=== PATIENT | male | born 1995 | race Caucasian/White ===

== ENCOUNTER 2016-04-22 | Emergency (ER) | payer OTHER ==
--- NOTE | 2016-04-22 16:19 | ED ---
General Adult HPI - General Chief complaint: Extremity Injury, Upper Stated complaint: R arm pain Time Seen by Provider: 04/22/16 16:00 Source: patient, RN notes reviewed Mode of arrival: ambulatory Limitations: no limitations - History of Present Illness Initial comments: This is a 21-year-old male presents with right forearm pain after donating plasma on 04/18/2016. Patient states he felt a sharp pain when they adjusted the needle and since has felt some loss of sensation to the lateral aspect of the right forearm. Patient states he is still able to feel pressure. Patient states there is pain with flexion and extension of the right upper extremity. Patient denies any numbness/tingling or weakness to the right hand. 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 Patient denies any recent fever, chills, shortness breath, chest pain, abdominal pain, nausea/vomiting/diarrhea, back pain, hematuria, headache, or visual changes, or any other complaints. - Related Data Allergies Allergy/AdvReac Type Severity Reaction Status Date / Time No Known Allergies Allergy Verified 04/22/16 16:04 Review of Systems ROS Statement: Those systems with pertinent positive or pertinent negative responses have been documented in the HPI. ROS Other: All systems not noted in ROS Statement are negative. Past Medical History Past Medical History: No Reported History History of Any Multi-Drug Resistant Organisms: None Reported Past Surgical History: Ear Surgery Past Psychological History: No Psychological Hx Reported Smoking Status: Current every day smoker Past Alcohol Use History: None Reported Past Drug Use History: None Reported General Exam - General Exam Comments Initial Comments: General: The patient is awake and alert, in no distress, and does not appear acutely ill. Neck: The neck is supple, there is no tenderness or JVD. Cardiovascular: There is a regular rate and rhythm. No murmur, rub or gallop is appreciated. Respiratory: Lungs are clear to auscultation, respirations are non-labored, breath sounds are equal. No wheezes, stridor, rales, or rhonchi. Musculoskeletal: There is tenderness to palpation in the antecubital fossa but no swelling, erythema or ecchymosis. No tenderness over the biceps tendon insertion. Full range of motion, strength 5/5 and patient is still able to sense light touch to the lateral aspect of the right forearm with eyes closed but states it feels different than the medial aspect of his forearm. Patient states he has full sensation to the right wrist, right hand to medial aspect of the right forearm. Radial Pulses 2+ bilaterally. Capillary refill normal at less than 2 seconds. Neurological: A&O x 3. CN II-XII intact, There are no obvious motor or sensory deficits. Coordination appears grossly intact. Speech is normal. Skin: Skin is warm and dry and no rashes or lesions are noted. Psychiatric: Normal mood and affect. Limitations: no limitations Course Vital Signs 04/22/16 16:01 Temperature 97.7 F Pulse Rate 75 Respiratory 18 Rate Blood Pressure 118/71 O2 Sat by Pulse 100 Oximetry Medical Decision Making - Medical Decision Making This is a 21-year-old male presents with right forearm pain after donating plasma. On physical exam there is tenderness to palpation in the antecubital fossa but no swelling, erythema or ecchymosis. No tenderness over the biceps tendon insertion. Full range of motion, strength 5/5 and patient is still able to sense light touch to the lateral aspect of the right forearm with eyes closed , but states it feels different than the medial aspect of his forearm. Patient states he has full sensation to the right wrist, right hand, and medial aspect of the right forearm. Radial pulses 2+ bilaterally. Capillary refill normal at less than 2 seconds. Discussed rest, ice or warm compresses to the area. Discussed that swelling in the arm from recent blood draw could be causing these symptoms. Discussed that normal function of the right hand, normal strength, normal sensation to the right hand and no redness, erythema or swelling to the injection site are good signs. Discussed gentle stretches to the right arm. Discussed [id number] Tylenol and/or Motrin for pain. Discussed close follow-up with primary care physician.discussed return parameters. Discussed that patient should follow up with PCP in one to 2 days or return to the [facility] for any worsening symptoms or for any further concerns. Patient was receptive to this plan and patient will be discharged home. Disposition Clinical Impression: Arm paresthesia, right Disposition: HOME SELF-CARE Condition: Good Instructions: Arm Pain (ED) Additional Instructions: [id number] Tylenol and Motrin as needed for any pain. Ice or warm compress to the area. Please follow-up with family doctor in the next 2 days of symptoms have not improved. Please return to emergency room if the symptoms increase or worsen or for any other concerns. Referrals: None,Stated [Primary Care Provider] - 1-2 days Time of Disposition: 16:29
== END 2016-04-22 16:32 | disposition home or self-care (01) ==
CPT/HCPCS: 99283

== ENCOUNTER 2019-10-08 11:34 | Emergency (ER) | payer OTHER ==
[2019-10-08 11:47] VITALS: RESP 18
[2019-10-08] MEDS ORDERED: SODIUM CHLORIDE 0.9% 1,000 ML IV STA (12:09)
--- NOTE | 2019-10-08 12:13 | ED ---
General Adult HPI - General Chief complaint: Abdominal Pain Stated complaint: bowel problems Time Seen by Provider: 10/08/19 12:04 Source: patient, RN notes reviewed, old records reviewed Mode of arrival: ambulatory Limitations: no limitations - History of Present Illness Initial comments: 24-year-old male presents for evaluation diarrhea and lower abdominal pain. Patient states he has had loose bowels for the past 5 years, chronic diarrhea. He states that this morning this diarrhea was worse than usual. He admits to eating a large amount of take hour yesterday. Denies dysuria. Denies fever. Denies upper abdominal pain or vomiting. He's had "unnatural" diarrhea today. - Related Data Home Medications Medication Instructions Recorded Confirmed No Known Home Medications 10/08/19 10/08/19 Allergies Allergy/AdvReac Type Severity Reaction Status Date / Time No Known Allergies Allergy Verified 10/08/19 12:23 Review of Systems ROS Statement: Those systems with pertinent positive or pertinent negative responses have been documented in the HPI. ROS Other: All systems not noted in ROS Statement are negative. Past Medical History Past Medical History: No Reported History History of Any Multi-Drug Resistant Organisms: None Reported Past Surgical History: Ear Surgery Past Psychological History: No Psychological Hx Reported Smoking Status: Current every day smoker Past Alcohol Use History: Occasional Past Drug Use History: Marijuana General Exam Limitations: no limitations General appearance: alert, in no apparent distress Head exam: Present: atraumatic, normocephalic Eye exam: Present: normal appearance, PERRL ENT exam: Present: normal exam Neck exam: Present: normal inspection. Absent: tenderness, meningismus Respiratory exam: Present: normal lung sounds bilaterally. Absent: respiratory distress, wheezes Cardiovascular Exam: Present: regular rate, normal rhythm GI/Abdominal exam: Present: soft. Absent: distended, tenderness, guarding, rebound Extremities exam: Present: normal inspection, normal capillary refill. Absent: pedal edema Back exam: Present: normal inspection Neurological exam: Present: alert, oriented X3, CN II-XII intact. Absent: motor sensory deficit Psychiatric exam: Present: normal affect, normal mood Skin exam: Present: warm, dry, intact. Absent: cyanosis, diaphoretic Course Vital Signs 10/08/19 11:44 Temperature 99.1 F Pulse Rate 75 Respiratory 18 Rate Blood Pressure 120/77 O2 Sat by Pulse 100 Oximetry Medical Decision Making - Medical Decision Making 24-year-old male with chronic diarrhea, worse today, minimal abdominal pain. Patient has a nondistended abdomen with no rebound or guarding, minimal lower abdominal tenderness to palpation. Stable vitals. He is afebrile well- appearing. Normal CBC, normal CMP, normal kidney function and electrolytes. Negative urinalysis, unable to provide a stool sample while in the emergency department. Patient will be given GI follow-up, return with worsening or changing symptoms. - Lab Data Result diagrams: 10/08/19 12:27 10/08/19 12:29 Lab Results 10/08/19 10/08/19 10/08/19 Range/Units 12:27 12: 12:29 WBC 7.7 (3.8-10.6) k/uL RBC 4.97 (4.30-5.90) m/uL Hgb 14.6 (13.0-17.5) gm/dL Hct 44.7 (39.0-53.0) % MCV 89.8 (80.0-100.0) fL MCH 29.3 (25.0-35.0) pg MCHC 32.6 (31.0-37.0) g/dL RDW 12.5 (11.5-15.5) % Plt Count 221 (150-450) k/uL Neutrophils % 57 % Lymphocytes % 30 % Monocytes % 4 % Eosinophils % 6 % Basophils % 1 % Neutrophils # 4.4 (1.3-7.7) k/uL Lymphocytes # 2.3 (1.0-4.8) k/uL Monocytes # 0.3 (0-1.0) k/uL Eosinophils # 0.4 (0-0.7) k/uL Basophils # 0.1 (0-0.2) k/uL Sodium 140 (137-145) mmol/L Potassium 4.2 (3.5-5.1) mmol/L Chloride 106 (98-107) mmol/L Carbon Dioxide 26 (22-30) mmol/L Anion Gap 8 mmol/L BUN 10 (9-20) mg/dL Creatinine 0.80 (0.66-1.25) mg/dL Est GFR (CKD-EPI)AfAm >90 (>60 ml/min/1.73 sqM) Est GFR (CKD-EPI)NonAf >90 (>60 ml/min/1.73 sqM) Glucose 81 (74-99) mg/dL Calcium 9.2 (8.4-10.2) mg/dL Total Bilirubin 0.7 (0.2-1.3) mg/dL AST 29 (17-59) U/L ALT 14 (4-49) U/L Alkaline Phosphatase 75 (38-126) U/L Total Protein 7.9 (6.3-8.2) g/dL Albumin 4.7 (3.5-5.0) g/dL Amylase 61 (30-110) U/L Lipase 83 (23-300) U/L Urine Color Yellow Urine Appearance Clear (Clear) Urine pH 8.0 (5.0-8.0) Ur Specific [place] 1.000 L (1.001-1.035) Urine Glucose (UA) Negative (Negative) Urine Ketones Negative (Negative) Urine Blood Negative (Negative) Urine Nitrite Negative (Negative) Urine Bilirubin Negative (Negative) Urine Urobilinogen <2.0 (<2.0) mg/dL Ur Leukocyte Esterase Negative (Negative) Urine WBC <1 (0-5) /hpf Disposition Clinical Impression: Abdominal pain, Diarrhea Disposition: HOME SELF-CARE Condition: Good Instructions (If sedation given, give patient instructions): Acute Diarrhea (ED), Abdominal Pain (ED) Is patient prescribed a controlled substance at d/c from ED?: No Referrals: None,Stated [Primary Care Provider] - 1-2 days Steffanie Fernandes MD [STAFF PHYSICIAN] - 1-2 days
--- NOTE | 2019-10-08 12:45 | XR ---
EXAMINATION TYPE: XR KUB DATE OF EXAM: 10/08/2019 12:37 PM CLINICAL HISTORY: Abdominal pain not further specified. TECHNIQUE: Two Upright KUB images of the abdomen are obtained. COMPARISON: None. FINDINGS: Scattered gas is seen in non-distended stomach and small bowel loops. Gas and fecal materia l is seen in non-distended colon. There is no suspicious calcification or pneumoperitoneum appreciate d. Liver may be slightly enlarged in size. The lung bases are clear. Slight scoliotic curvature may b e positional. IMPRESSION: Overall nonobstructive bowel gas pattern. Possible hepatomegaly. Correlate clinically.
[2019-10-08 12:51] LABS: Basophils # (A) 0.1 k/uL (0-0.2); Basophils % (A) 1 %; Eosinophils # (A) 0.4 k/uL (0-0.7); Eosinophils % (A) 6 %; HCT 44.7 % (39.0-53.0); HGB 14.6 gm/dL (13.0-17.5); Lymphocytes # (A) 2.3 k/uL (1.0-4.8); Lymphocytes % (A) 30 %; MCH 29.3 pg (25.0-35.0); MCHC 32.6 g/dL (31.0-37.0); MCV 89.8 fL (80.0-100.0); Mean Platelet Volume 7.7; Monocytes # (A) 0.3 k/uL (0-1.0); Monocytes % (A) 4 %; Neutrophils # (A) 4.4 k/uL (1.3-7.7); Neutrophils % (A) 57 %; Platelet Count 221 k/uL (150-450); RBC 4.97 m/uL (4.30-5.90); RDW 12.5 % (11.5-15.5); WBC 7.7 k/uL (3.8-10.6)
[2019-10-08 13:06] LABS: WBC,Urine <1 /hpf (0-5)
[2019-10-08 13:07] LABS: ALT 14 U/L (4-49); AST 29 U/L (17-59); African American GFR (CKD) >90 (>60 ml/min/1.73 sqM); Albumin 4.7 g/dL (3.5-5.0); Alkaline Phosphatase 75 U/L (38-126); Amylase 61 U/L (30-110); Anion Gap 8 mmol/L; Blood Urea Nitrogen 10 mg/dL (9-20); Calcium 9.2 mg/dL (8.4-10.2); Carbon Dioxide 26 mmol/L (22-30); Chloride 106 mmol/L (98-107); Glucose 81 mg/dL (74-99); Non-African American GFR(CKD) >90 (>60 ml/min/1.73 sqM); Sodium 140 mmol/L (137-145); Total Bilirubin 0.7 mg/dL (0.2-1.3); Total Protein 7.9 g/dL (6.3-8.2)
[2019-10-08 13:11] LABS: Potassium 4.2 mmol/L (3.5-5.1)
[2019-10-08 13:19] LABS: Appearance,Urine Clear (Clear); Bilirubin,Urine Negative (Negative); Blood,Urine Negative (Negative); Color,Urine Yellow; Glucose,Urine (UA) Negative (Negative); Ketones,Urine Negative (Negative); Urobilinogen,Urine <2.0 mg/dL (<2.0)
[2019-10-08 13:20] LABS: Leukocyte Esterase,Urine Negative (Negative); Nitrite,Urine Negative (Negative)
[2019-10-08 13:42] VITALS: BP 102/69; PULSE 67; TEMP 97.9
== END 2019-10-08 13:45 | disposition home or self-care (01) ==
LOC: EC 11:34
DX: K52.9 Noninfective gastroenteritis and colitis, unspecified (principal); F17.200 Nicotine dependence, unspecified, uncomplicated
CPT/HCPCS: 36415; 74018; 80053; 81001; 82150; 83690; 85025; 96360; 99284

== ENCOUNTER 2020-10-09 13:33 | Emergency (ER) | payer OTHER ==
[2020-10-09 14:07] VITALS: TEMP 98.1
[2020-10-09] MEDS: SODIUM CHLORIDE 0.9% 1,000 ML IV STA ×2 (14:46→14:47)
[2020-10-09 14:54] LABS: Basophils # (A) 0.1 k/uL (0-0.2); Basophils % (A) 1 %; Eosinophils # (A) 0.4 k/uL (0-0.7); Eosinophils % (A) 4 %; HGB 15.4 gm/dL (13.0-17.5); Lymphocytes # (A) 2.1 k/uL (1.0-4.8); Lymphocytes % (A) 25 %; MCHC 35.8 g/dL (31.0-37.0); MCV 86.6 fL (80.0-100.0); Mean Platelet Volume 7.1; Monocytes # (A) 0.4 k/uL (0-1.0); Monocytes % (A) 5 %; Neutrophils # (A) 5.4 k/uL (1.3-7.7); Neutrophils % (A) 64 %; Platelet Count 224 k/uL (150-450); RBC 4.97 m/uL (4.30-5.90); RDW 11.9 % (11.5-15.5); WBC 8.4 k/uL (3.8-10.6)
[2020-10-09 15:04] LABS: ALT 16 U/L (4-49); AST 30 U/L (17-59); African American GFR (CKD) >90 (>60 ml/min/1.73 sqM); Albumin 5.1 g/dL (3.5-5.0); Alkaline Phosphatase 82 U/L (38-126); Anion Gap 10 mmol/L; Blood Urea Nitrogen 15 mg/dL (9-20); Calcium 9.9 mg/dL (8.4-10.2); Carbon Dioxide 25 mmol/L (22-30); Chloride 105 mmol/L (98-107); Glucose 90 mg/dL (74-99); Non-African American GFR(CKD) >90 (>60 ml/min/1.73 sqM); Potassium 3.8 mmol/L (3.5-5.1); Sodium 140 mmol/L (137-145); Total Protein 7.9 g/dL (6.3-8.2)
[2020-10-09 15:06] LABS: Partial Thromboplastin Time 26.5 sec (22.0-30.0); Prothrombin Time 10.7 sec (9.0-12.0)
--- NOTE | 2020-10-09 15:08 | XR ---
EXAMINATION TYPE: XR chest 2V DATE OF EXAM: 10/09/2020 COMPARISON: 05/26/2012 HISTORY: Altered mental status TECHNIQUE: Frontal and lateral views of the chest are obtained. FINDINGS: There is no focal air space opacity, pleural effusion, or pneumothorax seen. The cardiac silhouette size is within normal limits. The osseous structures are intact. IMPRESSION: No acute cardiopulmonary process.
--- NOTE | 2020-10-09 15:40 | CT ---
EXAMINATION TYPE: CT brain wo con DATE OF EXAM: 10/09/2020 COMPARISON: None HISTORY: right arm numbness CT DLP: 1023.4 mGycm. Automated Exposure Control for Dose Reduction was Utilized. TECHNIQUE: CT scan of the head is performed without contrast. FINDINGS: There is no acute intracranial hemorrhage, mass effect, or midline shift identified. The ventricles and sulci are within normal limits in size. The globes are intact and the visualized sin uses are clear. IMPRESSION: No acute intracranial hemorrhage, mass effect, or midline shift is seen.
--- NOTE | 2020-10-09 15:59 | ED ---
General Adult HPI - General Chief complaint: Neuro Symptoms/Deficit Stated complaint: right side numbness Time Seen by Provider: 10/09/20 14:21 Source: patient, RN notes reviewed Mode of arrival: ambulatory Limitations: no limitations - History of Present Illness Initial comments: Patient is a 25-year-old male that presents to the emergency department c omplaining of right lower arm and right lower extremity numbness that increased with use. 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 He notes he was massaging his arm and noted that his brachial radialis was tender to the touch. Patient was alert and oriented in no apparent distress or pain. He was playing his Verivue switch while sitting up in bed. Patient was a well-appearing well-hydrated 25-year-old male. He denied any other complaints or issues. He denied any weakness decreased range of motion or strength in his right upper and lower extremity. He denied any chest pain short of breath headache nausea vomiting diarrhea constipation fever fatigue chills. - Related Data Home Medications Medication Instructions Recorded Confirmed No Known Home Medications 10/08/19 10/08/19 Allergies Allergy/AdvReac Type Severity Reaction Status Date / Time No Known Allergies Allergy Verified 10/09/20 14:08 Review of Systems ROS Statement: Those systems with pertinent positive or pertinent negative responses have been documented in the HPI. ROS Other: All systems not noted in ROS Statement are negative. Past Medical History Past Medical History: No Reported History History of Any Multi-Drug Resistant Organisms: None Reported Past Surgical History: Ear Surgery Past Psychological History: No Psychological Hx Reported Smoking Status: Current every day smoker, Vaper Past Alcohol Use History: Occasional Past Drug Use History: Marijuana General Exam Limitations: no limitations General appearance: alert, in no apparent distress Head exam: Present: atraumatic, normocephalic, normal inspection Eye exam: Present: normal appearance, PERRL, EOMI. Absent: scleral icterus, conjunctival injection, periorbital swelling Neck exam: Present: normal inspection Respiratory exam: Present: normal lung sounds bilaterally. Absent: respiratory distress, wheezes, rales, rhonchi, stridor Cardiovascular Exam: Present: regular rate, normal rhythm, normal heart sounds. Absent: systolic murmur, diastolic murmur, rubs, gallop, clicks GI/Abdominal exam: Present: soft, normal bowel sounds. Absent: distended, tenderness, guarding, rebound, rigid Extremities exam: Present: normal inspection, full ROM, normal capillary refill. Absent: tenderness, pedal edema, joint swelling, calf tenderness Right Shoulder Exam: Present: normal inspection, full ROM Upper Arm exam: Present: normal inspection, full ROM Elbow exam: Present: normal inspection, full ROM. Absent: tenderness, swelling, abrasion, laceration, ecchymosis, deformity, crepitus, dislocation Forearm Wrist exam: Present: normal inspection, full ROM. Absent: tenderness, swelling, abrasion Right Hip exam: Present: normal inspection, full ROM Upper Leg exam: Present: normal inspection, full ROM Knee exam: Present: normal inspection, full ROM Lower Leg exam: Present: normal inspection, full ROM Ankle exam: Present: normal inspection, full ROM Neurological exam: Present: alert, oriented X3 Expanded Patient oriented to: Present: person, place, time Speech: Present: fluid speech Cranial nerves: EOM's Intact: Normal, Gag Reflex: Normal, Tongue Deviation: Normal, Nystagmus: Normal, Facial Sensation: Normal Cerebellar function: Finger to Nose: Normal, Heel to Thorne: Normal Sensory exam: Upper Extremity Light Touch: Normal, Lower Extremity Light Touch: Normal Motor strength exam: RUE: 5, LUE: 5, RLE: 5, LLE: 5 Eye Response: (4) open spontaneously Motor Response: (6) obeys commands Verbal Response: (5) oriented Psychiatric exam: Present: normal affect, normal mood Skin exam: Present: warm, dry, intact, normal color. Absent: rash Course Vital Signs 10/09/20 14:03 Temperature 98.1 F Pulse Rate 78 Respiratory 20 Rate Blood Pressure 117/72 O2 Sat by Pulse 99 Oximetry EKG Findings - EKG Comments: EKG Findings:: Ventricular rate 62 bpm, WV interval 132 ms, QRS duration 94 ms, QTC 401 ms, PRT axes 61/84/64. Normal sinus rhythm with sinus arrhythmia, incomplete right bundle branch block, borderline ECG. Medical Decision Making - Medical Decision Making 25-year-old male complaining of some numbness in his right lower up her extremity and right lower extremity increased with use for the past 6 days. Labs, CT of the brain, chest x-ray, 1 L normal saline ordered. Labs unremarkable. Imaging negative for any acute process. Case discussed with Dr. shepard, patient can discharge home follow up primary care and neurology. - Lab Data Result diagrams: 10/09/20 14:43 10/09/20 14:43 Lab Results 10/09/20 10/09/20 10/09/20 Range/Units 14:43 14:43 14:43 WBC 8.4 (3.8-10.6) k/uL RBC 4.97 (4.30-5.90) m/uL Hgb 15.4 (13.0-17.5) gm/dL Hct 43.0 (39.0-53.0) % MCV 86.6 (80.0-100.0) fL MCH 31.0 (25.0-35.0) pg MCHC 35.8 (31.0-37.0) g/dL RDW 11.9 (11.5-15.5) % Plt Count 224 (150-450) k/uL MPV 7.1 Neutrophils % 64 % Lymphocytes % 25 % Monocytes % 5 % Eosinophils % 4 % Basophils % 1 % Neutrophils # 5.4 (1.3-7.7) k/uL Lymphocytes # 2.1 (1.0-4.8) k/uL Monocytes # 0.4 (0-1.0) k/uL Eosinophils # 0.4 (0-0.7) k/uL Basophils # 0.1 (0-0.2) k/uL PT 10.7 (9.0-12.0) sec INR 1.0 (<1.2) APTT 26.5 (22.0-30.0) sec Sodium 140 (137-145) mmol/L Potassium 3.8 (3.5-5.1) mmol/L Chloride 105 (98-107) mmol/L Carbon Dioxide 25 (22-30) mmol/L Anion Gap 10 mmol/L BUN 15 (9-20) mg/dL Creatinine 0.82 (0.66-1.25) mg/dL Est GFR (CKD-EPI)AfAm >90 (>60 ml/min/1.73 sqM) Est GFR (CKD-EPI)NonAf >90 (>60 ml/min/1.73 sqM) Glucose 90 (74-99) mg/dL Calcium 9.9 (8.4-10.2) mg/dL Total Bilirubin 1.0 (0.2-1.3) mg/dL AST 30 (17-59) U/L ALT 16 (4-49) U/L Alkaline Phosphatase 82 (38-126) U/L Troponin I (0.000-0.034) ng/mL Total Protein 7.9 (6.3-8.2) g/dL Albumin 5.1 H (3.5-5.0) g/dL Urine Color Urine Appearance (Clear) Urine pH (5.0-8.0) Ur Specific [place] (1.001-1.035) Urine Protein (Negative) Urine Glucose (UA) (Negative) Urine Ketones (Negative) Urine Blood (Negative) Urine Nitrite (Negative) Urine Bilirubin (Negative) Urine Urobilinogen (<2.0) mg/dL Ur Leukocyte Esterase (Negative) 10/09/20 10/09/20 Range/Units 14:43 14:43 WBC (3.8-10.6) k/uL RBC (4.30-5.90) m/uL Hgb (13.0-17.5) gm/dL Hct (39.0-53.0) % MCV (80.0-100.0) fL MCH (25.0-35.0) pg MCHC (31.0-37.0) g/dL RDW (11.5-15.5) % Plt Count (150-450) k/uL MPV Neutrophils % % Lymphocytes % % Monocytes % % Eosinophils % % Basophils % % Neutrophils # (1.3-7.7) k/uL Lymphocytes # (1.0-4.8) k/uL Monocytes # (0-1.0) k/uL Eosinophils # (0-0.7) k/uL Basophils # (0-0.2) k/uL PT (9.0-12.0) sec INR (<1.2) APTT (22.0-30.0) sec Sodium (137-145) mmol/L Potassium (3.5-5.1) mmol/L Chloride (98-107) mmol/L Carbon Dioxide (22-30) mmol/L Anion Gap mmol/L BUN (9-20) mg/dL Creatinine (0.66-1.25) mg/dL Est GFR (CKD-EPI)AfAm (>60 ml/min/1.73 sqM) Est GFR (CKD-EPI)NonAf (>60 ml/min/1.73 sqM) Glucose (74-99) mg/dL Calcium (8.4-10.2) mg/dL Total Bilirubin (0.2-1.3) mg/dL AST (17-59) U/L ALT (4-49) U/L Alkaline Phosphatase (38-126) U/L Troponin I <0.012 (0.000-0.034) ng/mL Total Protein (6.3-8.2) g/dL Albumin (3.5-5.0) g/dL Urine Color Yellow Urine Appearance Clear (Clear) Urine pH 6.5 (5.0-8.0) Ur Specific [place] 1.035 (1.001-1.035) Urine Protein Trace H (Negative) Urine Glucose (UA) Negative (Negative) Urine Ketones Trace H (Negative) Urine Blood Negative (Negative) Urine Nitrite Negative (Negative) Urine Bilirubin Negative (Negative) Urine Urobilinogen 3.0 (<2.0) mg/dL Ur Leukocyte Esterase Negative (Negative) - EKG Data -: EKG Interpreted by Wi EKG shows normal: sinus rhythm Rate: normal EKG Comments: Ventricular rate 62 bpm, WV interval 132 ms, QRS duration 94 ms, QTC 401 ms, PRT axes 61/84/64. Normal sinus rhythm with sinus arrhythmia, incomplete right bundle branch block, borderline ECG. - Radiology Data Radiology results: report reviewed, image reviewed CT of the brain: No acute intracranial hemorrhage, mass effect or midline shift seen. Chest x-ray no acute cardiopulmonary process. Disposition Clinical Impression: Neuralgia Disposition: HOME SELF-CARE Condition: Stable Instructions (If sedation given, give patient instructions): Paresthesia (ED) Additional Instructions: Please return to the Emergency Department if symptoms worsen or any other concerns. Follow-up with primary care and neurology soon as possible. Is patient prescribed a controlled substance at d/c from ED?: No Referrals: None,Stated [Primary Care Provider] - 1-2 days Arthur Rodríguez MD [STAFF PHYSICIAN] - 1-2 days Time of Disposition: 16:42
[2020-10-09 16:34] LABS: Appearance,Urine Clear (Clear); Bilirubin,Urine Negative (Negative); Blood,Urine Negative (Negative); Color,Urine Yellow; Glucose,Urine (UA) Negative (Negative); Ketones,Urine Trace (Negative); Leukocyte Esterase,Urine Negative (Negative); Nitrite,Urine Negative (Negative); PH, Urine 6.5 (5.0-8.0); Protein,Urine Trace (Negative); Specific Gravity,Urine 1.035 (1.001-1.035)
[2020-10-09 16:55] VITALS: BP 117/84; PULSE 58; RESP 16
== END 2020-10-09 16:55 | disposition home or self-care (01) ==
LOC: EC 13:33
DX: M79.2 Neuralgia and neuritis, unspecified (principal); F17.290 Nicotine dependence, other tobacco product, uncomplicated; F12.90 Cannabis use, unspecified, uncomplicated; Z72.89 Other problems related to lifestyle
CPT/HCPCS: 36415; 70450; 71046; 80053; 81003; 84484; 85025; 85610; 85730; 93005; 99284

== ENCOUNTER 2021-10-21 17:40 | Emergency (ER) | payer OTHER ==
[2021-10-21 17:47] VITALS: BP 117/78; PULSE 63; RESP 16; TEMP 98.5
--- NOTE | 2021-10-21 18:35 | ED ---
General Adult HPI - General Chief complaint: Chest Pain Stated complaint: chest pain & dizziness Time Seen by Provider: 10/21/21 18:21 Source: patient Mode of arrival: ambulatory Limitations: no limitations - History of Present Illness Initial comments: Dictation was produced using [employer] dictation software. please excuse any grammatical, word or spelling errors. Chief Complaint: 26-year-old male presents with 1 week of chest wall numbness and chest pain History of Present Illness: 26-year-old male who presents emergency department for chest ache. He states that it's on the left side of his chest. States that he has also intermittent numbness in that area in a dermatomal distribution. He was at work today and couldn't stop thinking about his symptoms decided come to the emergency room. Patient states that it's worse when he takes a deep breath. He denies any shortness of breath. Denies any exacerbation with positional changes. Patient has any medical problems. Doesn't have strong family history of cardiac disease. Patient does smoke a lot of cigarettes. No associated diaphoresis. No associated nausea. The ROS documented in this emergency department record has been reviewed and confirmed by me. Those systems with pertinent positive or negative responses have been documented in the HPI. All other systems are other negative and/or noncontributory. PHYSICAL EXAM: General Impression: Alert and oriented x3, not in acute distress HEENT: Normocephalic atraumatic, extra-ocular movements intact, pupils equal and reactive to light bilaterally, mucous membranes moist. Cardiovascular: Heart regular rate and rhythm Chest: Able to complete full sentences, no retractions, no tachypnea Abdomen: abdomen soft, non-tender, non-distended, no organomegaly Musculoskeletal: Pulses present and equal in all extremities, no peripheral edema Motor: no focal deficits noted Neurological: CN II-XII grossly intact, no focal motor or sensory deficits noted Skin: Intact with no visualized rashes Psych: Normal affect and mood ED course: 26-year-old male presents emergency department for atypical chest pain. Signs upon arrival are within acceptable limits. EKG does not show any signs of ischemic infarction. No evidence of pericarditis. Patient has reported sensory deficit in a dermatomal distribution at the T5 level Laboratory evaluation obtained. Finally unremarkable. CBC, coag panel, d-dimer and troponin are all negative. Chest x-ray shows no acute processes. Patient observed in emergency department for approximately 2 hours. Reevaluated bedside at 7:30 PM found to be stable medical vision. At this point patient is stable for discharge. He has no high-risk features. His symptoms are very atypical. Patient is advised to follow-up with primary care doctor for outpatient management of his symptoms. EKG interpretation: Ventricular rate 50, sinus bradycardia, NM interval 134, care is 96, QTC 390. No NM prolongation, no QTC prolongation, no ST or T-wave changes noted. Overall, this EKG is unremarkable - Related Data Home Medications Medication Instructions Recorded Confirmed No Known Home Medications 10/08/19 10/21/21 Allergies Allergy/AdvReac Type Severity Reaction Status Date / Time No Known Allergies Allergy Verified 10/21/21 19:15 Review of Systems ROS Statement: Those systems with pertinent positive or pertinent negative responses have been documented in the HPI. ROS Other: All systems not noted in ROS Statement are negative. Past Medical History Past Medical History: No Reported History History of Any Multi-Drug Resistant Organisms: None Reported Past Surgical History: Ear Surgery Past Psychological History: No Psychological Hx Reported Smoking Status: Current every day smoker, Vaper Past Alcohol Use History: Occasional Past Drug Use History: Marijuana General Exam Limitations: no limitations Course Vital Signs 10/21/21 17:45 Temperature 98.5 F Pulse Rate 63 Respiratory 16 Rate Blood Pressure 117/78 O2 Sat by Pulse 99 Oximetry Medical Decision Making - Lab Data Result diagrams: 10/21/21 18:44 10/21/21 18:44 Lab Results 10/21/21 10/21/21 10/21/21 Range/Units 18:44 18:44 18:44 WBC 10.8 H (3.8-10.6) k/uL RBC 4.57 (4.30-5.90) m/uL Hgb 14.0 (13.0-17.5) gm/dL Hct 41.1 (39.0-53.0) % MCV 89.9 (80.0-100.0) fL MCH 30.7 (25.0-35.0) pg MCHC 34.2 (31.0-37.0) g/dL RDW 12.0 (11.5-15.5) % Plt Count 228 (150-450) k/uL MPV 7.6 Neutrophils % 69 % Lymphocytes % 20 % Monocytes % 4 % Eosinophils % 4 % Basophils % 2 % Neutrophils # 7.5 (1.3-7.7) k/uL Lymphocytes # 2.2 (1.0-4.8) k/uL Monocytes # 0.5 (0-1.0) k/uL Eosinophils # 0.4 (0-0.7) k/uL Basophils # 0.2 (0-0.2) k/uL D-Dimer <0.17 (<0.60) mg/L FEU Sodium 138 (137-145) mmol/L Potassium 4.6 (3.5-5.1) mmol/L Chloride 104 (98-107) mmol/L Carbon Dioxide 26 (22-30) mmol/L Anion Gap 8 mmol/L BUN 10 (9-20) mg/dL Creatinine 0.77 (0.66-1.25) mg/dL Est GFR (CKD-EPI)AfAm >90 (>60 ml/min/1.73 sqM) Est GFR (CKD-EPI)NonAf >90 (>60 ml/min/1.73 sqM) Glucose 84 (74-99) mg/dL Calcium 9.1 (8.4-10.2) mg/dL Troponin I (0.000-0.034) ng/mL 10/21/21 Range/Units 18:44 WBC (3.8-10.6) k/uL RBC (4.30-5.90) m/uL Hgb (13.0-17.5) gm/dL Hct (39.0-53.0) % MCV (80.0-100.0) fL MCH (25.0-35.0) pg MCHC (31.0-37.0) g/dL RDW (11.5-15.5) % Plt Count (150-450) k/uL MPV Neutrophils % % Lymphocytes % % Monocytes % % Eosinophils % % Basophils % % Neutrophils # (1.3-7.7) k/uL Lymphocytes # (1.0-4.8) k/uL Monocytes # (0-1.0) k/uL Eosinophils # (0-0.7) k/uL Basophils # (0-0.2) k/uL D-Dimer (<0.60) mg/L FEU Sodium (137-145) mmol/L Potassium (3.5-5.1) mmol/L Chloride (98-107) mmol/L Carbon Dioxide (22-30) mmol/L Anion Gap mmol/L BUN (9-20) mg/dL Creatinine (0.66-1.25) mg/dL Est GFR (CKD-EPI)AfAm (>60 ml/min/1.73 sqM) Est GFR (CKD-EPI)NonAf (>60 ml/min/1.73 sqM) Glucose (74-99) mg/dL Calcium (8.4-10.2) mg/dL Troponin I <0.012 (0.000-0.034) ng/mL Disposition Clinical Impression: Chest pain Disposition: HOME SELF-CARE Condition: Fair Instructions (If sedation given, give patient instructions): Chest Pain (ED) Is patient prescribed a controlled substance at d/c from ED?: No Referrals: None,Stated [Primary Care Provider] - 1-2 days Nelly Vogel MD [REFERRING] - 1-2 days Time of Disposition: 19:32
[2021-10-21 18:56] LABS: Basophils # (A) 0.2 k/uL (0-0.2); Basophils % (A) 2 %; Eosinophils # (A) 0.4 k/uL (0-0.7); Eosinophils % (A) 4 %; HCT 41.1 % (39.0-53.0); Lymphocytes # (A) 2.2 k/uL (1.0-4.8); Lymphocytes % (A) 20 %; MCH 30.7 pg (25.0-35.0); MCHC 34.2 g/dL (31.0-37.0); MCV 89.9 fL (80.0-100.0); Mean Platelet Volume 7.6; Monocytes # (A) 0.5 k/uL (0-1.0); Monocytes % (A) 4 %; Neutrophils # (A) 7.5 k/uL (1.3-7.7); Neutrophils % (A) 69 %; Platelet Count 228 k/uL (150-450); RBC 4.57 m/uL (4.30-5.90); WBC 10.8 k/uL (3.8-10.6)
[2021-10-21 19:06] LABS: African American GFR (CKD) >90 (>60 ml/min/1.73 sqM); Anion Gap 8 mmol/L; Blood Urea Nitrogen 10 mg/dL (9-20); Calcium 9.1 mg/dL (8.4-10.2); Carbon Dioxide 26 mmol/L (22-30); Chloride 104 mmol/L (98-107); Glucose 84 mg/dL (74-99); Non-African American GFR(CKD) >90 (>60 ml/min/1.73 sqM); Potassium 4.6 mmol/L (3.5-5.1); Sodium 138 mmol/L (137-145)
--- NOTE | 2021-10-21 19:12 | XR ---
EXAMINATION TYPE: XR chest 2V DATE OF EXAM: 10/21/2021 COMPARISON: Ex [id number] HISTORY: Chest pain TECHNIQUE: 2 views FINDINGS: Heart and mediastinum are normal. Lungs are clear. Diaphragm is normal. Bony thorax is inta ct. IMPRESSION: Normal chest. No change.
== END 2021-10-21 20:17 | disposition home or self-care (01) ==
LOC: EC 17:40
DX: R07.89 Other chest pain (principal); F17.209 Nicotine dependence, unspecified, with unspecified nicotine-induced disorders
CPT/HCPCS: 36415; 71046; 80048; 84484; 85025; 85379; 93005